=== PATIENT | male | born 2000 | race Native Hawaiian/Other Pacific Islander ===

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

== ENCOUNTER 2022-09-07 02:19 | Emergency (ER) | payer OTHER ==
[~2022-09-07] VITALS: Ht 170.2 cm; Wt 72.6 kg
[2022-09-07 02:20] VITALS: BP 146/90; TEMP 97.8
[2022-09-07 02:53] LABS: PLATELET COUNT 358 K/uL (142-355)
[2022-09-07 04:17] LABS: POTASSIUM 3.7 mmol/L (3.6-5.2); SODIUM 141 mmol/L (136-145)
== END 2022-09-07 07:20 | disposition home or self-care (01) ==
LOC: ED 02:19
PROVIDERS: Family Medicine
DX: R45.851 Suicidal ideations (principal); F10.129 Alcohol abuse with intoxication, unspecified
CPT/HCPCS: 36415; 80053; 80179; 80307; 80320; 81002; 85027; 99285